=== PATIENT | male | born 1950 | race Caucasian/White ===

== ENCOUNTER 2022-01-17 14:00 | Inpatient (IN) | payer MEDICARE, BC ==
[~2022-01-17 14:00] MED LIST: Pantoprazole 40 MG Tab.CR PO ONE
[2022-01-17] MEDS ORDERED: Carvedilol 25 MG Tab PO ONE (20:30)
[2022-01-17] MEDS ORDERED: QUEtiapine 25 MG Tab PO ONE (20:30)
[2022-01-18] MEDS ORDERED: Pantoprazole 40 MG Tab.CR PO ONE (06:47)
[2022-01-18] MEDS ORDERED: Venlafaxine 75 MG Cap.ER PO ONE (10:00)
[2022-01-18] MEDS ORDERED: Finasteride 5 MG Tab PO ONE (10:00)
[2022-01-18] MEDS ORDERED: Carvedilol 25 MG Tab PO ONE ×2 (10:00→20:43)
[2022-01-18] MEDS ORDERED: Tamsulosin 0.4 MG Cap.ER PO ONE (10:00)
[2022-01-18] MEDS ORDERED: Furosemide 40 MG Tab PO ONE (10:00)
[2022-01-18] MEDS ORDERED: Losartan 50 MG Tab PO ONE (10:00)
[2022-01-18] MEDS ORDERED: Spironolactone 25 MG Tab PO ONE (10:00)
[2022-01-18] MEDS ORDERED: Isosorbide Mononitrate 30 MG Tab.ER PO ONE (10:00)
[2022-01-18] MEDS ORDERED: QUEtiapine 25 MG Tab PO ONE (20:43)
[2022-01-19] MEDS ORDERED: Tamsulosin 0.4 MG Cap.ER PO ONE (09:00)
[2022-01-19] MEDS ORDERED: Spironolactone 25 MG Tab PO ONE (09:00)
[2022-01-19] MEDS ORDERED: fentaNYL 50 MCG/HR Transdermal Patch TRDERM ONE (09:00)
[2022-01-19] MEDS ORDERED: Losartan 50 MG Tab PO ONE (09:00)
[2022-01-19] MEDS ORDERED: Finasteride 5 MG Tab PO ONE (09:00)
[2022-01-19] MEDS ORDERED: Venlafaxine 75 MG Cap.ER PO ONE (09:00)
[2022-01-19] MEDS ORDERED: Carvedilol 25 MG Tab PO ONE ×2 (09:00→21:00)
[2022-01-19] MEDS ORDERED: Isosorbide Mononitrate 30 MG Tab.ER PO ONE (09:00)
[2022-01-19] MEDS ORDERED: Furosemide 40 MG Tab PO ONE (09:00)
[2022-01-19] MEDS ORDERED: QUEtiapine 25 MG Tab PO ONE (21:00)
[2022-01-20] MEDS ORDERED: Pantoprazole 40 MG Tab.CR PO ONE (06:35)
[2022-01-20] MEDS ORDERED: Losartan 50 MG Tab PO ONE (09:27)
[2022-01-20] MEDS ORDERED: Isosorbide Mononitrate 30 MG Tab.ER PO ONE (09:27)
[2022-01-20] MEDS ORDERED: Tamsulosin 0.4 MG Cap.ER PO ONE (09:27)
[2022-01-20] MEDS ORDERED: Venlafaxine 75 MG Cap.ER PO ONE (09:27)
[2022-01-20] MEDS ORDERED: Spironolactone 25 MG Tab PO ONE (09:27)
[2022-01-20] MEDS ORDERED: Finasteride 5 MG Tab PO ONE (09:27)
[2022-01-20] MEDS ORDERED: Carvedilol 25 MG Tab PO ONE ×2 (09:27→21:45)
[2022-01-20] MEDS ORDERED: Furosemide 40 MG Tab PO ONE (09:27)
[2022-01-20] MEDS ORDERED: QUEtiapine 25 MG Tab PO ONE ×2 (20:25→21:50)
[2022-01-21] MEDS ORDERED: Pantoprazole 40 MG Tab.CR PO ONE (06:47)
[2022-01-21] MEDS ORDERED: Venlafaxine 75 MG Cap.ER PO ONE (10:07)
[2022-01-21] MEDS ORDERED: Carvedilol 25 MG Tab PO ONE (10:07)
[2022-01-21] MEDS ORDERED: Losartan 50 MG Tab PO ONE (10:07)
[2022-01-21] MEDS ORDERED: Finasteride 5 MG Tab PO ONE (10:07)
[2022-01-21] MEDS ORDERED: Furosemide 40 MG Tab PO ONE (10:07)
[2022-01-21] MEDS ORDERED: Isosorbide Mononitrate 30 MG Tab.ER PO ONE (10:07)
[2022-01-21] MEDS ORDERED: Spironolactone 25 MG Tab PO ONE (10:10)
[2022-01-21] MEDS ORDERED: Tamsulosin 0.4 MG Cap.ER PO ONE (10:10)
[2022-01-22] MEDS ORDERED: Pantoprazole 40 MG Tab.CR PO ONE (06:52)
[2022-01-22] MEDS ORDERED: Isosorbide Mononitrate 30 MG Tab.ER PO ONE (09:00)
[2022-01-22] MEDS ORDERED: Venlafaxine 75 MG Cap.ER PO ONE (09:00)
[2022-01-22] MEDS ORDERED: Spironolactone 25 MG Tab PO ONE (09:00)
[2022-01-22] MEDS ORDERED: Carvedilol 25 MG Tab PO ONE (09:00)
[2022-01-22] MEDS ORDERED: Furosemide 40 MG Tab PO ONE (09:00)
[2022-01-22] MEDS ORDERED: Tamsulosin 0.4 MG Cap.ER PO ONE (09:00)
[2022-01-22] MEDS ORDERED: Finasteride 5 MG Tab PO ONE (09:00)
[2022-01-22] MEDS ORDERED: Losartan 50 MG Tab PO ONE (09:00)
[2022-01-22] MEDS ORDERED: fentaNYL 50 MCG/HR Transdermal Patch TRDERM ONE (12:00)
== END 2022-01-22 15:00 | disposition hospice, home (50) | DRG 951 ==
LOC: MW.ZCENSUS 14:00
PROVIDERS: ADMIT Student in an Organized Health Care Education/Training Program; ATTEND Student in an Organized Health Care Education/Training Program
DX: Z51.5 Encounter for palliative care (principal); K59.00 Constipation, unspecified; R33.9 Retention of urine, unspecified; F41.9 Anxiety disorder, unspecified; R11.2 Nausea with vomiting, unspecified; R07.9 Chest pain, unspecified; K21.9 Gastro-esophageal reflux disease without esophagitis; F32.A Depression, unspecified; N18.9 Chronic kidney disease, unspecified; I48.0 Paroxysmal atrial fibrillation; I12.9 Hypertensive chronic kidney disease with stage 1 through stage 4 chronic kidney disease, or unspecified chronic kidney disease; I25.2 Old myocardial infarction; G31.83 Neurocognitive disorder with Lewy bodies; F02.80 Dementia in other diseases classified elsewhere, unspecified severity, without behavioral disturbance, psychotic disturbance, mood disturbance, and anxiety
CPT/HCPCS: A9270-GY; U0002